=== PATIENT | female | born 1990 | race Caucasian/White ===

== ENCOUNTER 2018-09-21 12:57 | Emergency (ER) | payer SELFPAY ==
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
[2018-09-21 14:44] VITALS: BP 130/80
== END 2018-09-21 14:44 | disposition home or self-care (01) ==
DX: S42.025A Nondisplaced fracture of shaft of left clavicle, initial encounter for closed fracture (principal); R07.89 Other chest pain; W50.0XXA Accidental hit or strike by another person, initial encounter; Z87.891 Personal history of nicotine dependence
CPT/HCPCS: A4565

== ENCOUNTER → 2018-10-11 | Outpatient (CLI) | payer MEDICAID | LOC: BMCIMAGING 14:24 | PROVIDERS: ATTEND Physician Assistant | DX: S42.022A Displaced fracture of shaft of left clavicle, initial encounter for closed fracture (principal) ==

== ENCOUNTER 2018-10-20 11:31 | Day surgery (SDC) | payer MEDICAID ==
[2018-10-20] MEDS ORDERED: ceFAZolin 2 GM/DEXTROSE 100 ML IV ONE (11:43)
[2018-10-20] MEDS ORDERED: LR 1,000 ML IV ONE (11:45)
--- NOTE | 2018-10-20 12:52 | PDANEPAE ---
ANE History of Present Illness left clavicle fx ANE Past Medical History - Cardiovascular History Hx Hypertension: No Hx Arrhythmias: No Hx Chest Pain: No Hx Coronary Artery / Peripheral Vascular Disease: No Hx CHF / Valvular Disease: No Hx Palpitations: No - Pulmonary History Hx COPD: No Hx Asthma/Reactive Airway Disease: No Hx Recent Upper Respiratory Infection: No Hx Oxygen in Use at Home: No Hx Sleep Apnea: No Sleep Apnea Screening Result - Last Documented: Negative - Neurologic History Hx Cerebrovascular Accident: No Hx Seizures: No Hx Dementia: No Neurologic History Comment: MIGRAINES IN PAST. HEAD INJURY IN 2016. 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 - Cancer History Hx Cancer: No - Congenital Disorder History Hx Congenital Disorders: No - GI History GERD: no Hx Gastrointestinal Disorders: No Gastrointestinal History Comment: ACID REFLUX TX W/DIET - Other Health History Other Health History: 1 month ago, HCG positive, OB consulted, no additional testing indicated - Chronic Pain History Chronic Pain: No - Surgical History Prior Surgeries: WISDOM TEETH ANE Review of Systems Review of Systems: - Exercise capacity METS (RN): 5 METS ANE Patient History - Allergies Allergies/Adverse Reactions: No Known Allergies Allergy (Unverified 09/21/18 13:03) - Home Medications Home medications: home medication list seen and reviewed Home Medications: Acetaminophen 10/18/18 [Last Taken 10/19/18] Herbals/Supplements -Info Only 10/18/18 [Last Taken 10/18/18] - NPO status NPO Since - Liquids (Date): 10/19/18 NPO Since - Liquids (Time): 20:00 NPO Since - Solids (Date): 10/19/18 NPO Since - Solids (Time): 20:00 - Anes Hx Anes Hx: no prior problems - Smoking Hx Smoking Status: Light smoker - Family Anes Hx Family Anes Hx: none Family Hx Anesthesia Complications: NEG ANE Labs/Vital Signs - Vital Signs Blood Pressure: 112/58 Heart Rate: 77 Respiratory Rate: 16 O2 Sat (%): 98 Height: 165.1 cm Weight: 56.699 kg ANE Physical Exam - Airway Neck exam: FROM Mallampati Score: Class 2 Mouth exam: normal dental/mouth exam - Pulmonary Pulmonary: no respiratory distress, clear to auscultation - Cardiovascular Cardiovascular: regular rate and rhythym, no murmur, rub, or gallop - ASA Status ASA Status: II ANE Anesthesia Plan Anesthesia Plan: general endotracheal anesthesia Regional Anesthesia: interscalene BP NB
[2018-10-20] MEDS ORDERED: MIDAZOLAM 2 MG/2 ML VIAL IVP ONE (12:53)
[2018-10-20] MEDS ORDERED: fentaNYL 250 MCG/5 ML INJ ONE (12:56)
[2018-10-20] MEDS ORDERED: PROPOFOL 200 MG/20 ML VIAL ONE (12:56)
[2018-10-20] MEDS ORDERED: BUPIVACAINE/EPI 0.5% 30 ML SDV ONE (13:12)
--- NOTE | 2018-10-20 13:27 | PDHPUP ---
History & Physical Update H&P update statement: This history and physical update is based on an assessment of the patient which was completed after admission or registration (within 24 hours), but prior to the surgery/procedure. H&P update: H&P reviewed & patient examined, no change in patient's condition since H&P completed
[2018-10-20] MEDS ORDERED: LIDOCAINE 2% 5 ML SDV ONE (13:35)
[2018-10-20] MEDS ORDERED: ePHEDrine SULFATE 25 MG/5 ML SYR ONE (13:52)
[2018-10-20] MEDS ORDERED: DEXAMETHASONE 4 MG/ML VIAL ONE (13:52)
[2018-10-20] MEDS ORDERED: ONDANSETRON 4 MG/2 ML VIAL ONE (13:52)
[2018-10-20] MEDS ORDERED: DIAZEPAM 10 MG/2 ML SYR IVP PRN (15:32)
[2018-10-20] MEDS ORDERED: LR 500 ML IV PRN (15:32)
[2018-10-20] MEDS ORDERED: NALOXONE HCL 0.4 MG/ML INJ IVP PRN (15:32)
[2018-10-20] MEDS ORDERED: fentaNYL 100 MCG/2 ML INJ IVP PRN (15:32)
--- NOTE | 2018-10-20 15:35 | POSTANESTH ---
Post Anesthetic Evaluation Cardiovascular Status: Normal, Stable Respiratory Status: Normal, Stable Level of Consciousness/Mental Status: Can Participate in Eval Pain Control: Adequate, Prn Tx Ordered Nausea/Vomiting Control: Adequate, Prn Tx Ordered Complications Possibly Related to Anesthesia: None Noted
[2018-10-20 16:13] VITALS: BP 112/65
--- NOTE | 2018-10-20 16:58 | GOP ---
[f rep st] OPERATIVE REPORT DATE OF OPERATION: 10/20/2018 SURGEON: Kali Olivia MD ANESTHESIA: General. PREOPERATIVE DIAGNOSIS: Left clavicle shaft fracture. POSTOPERATIVE DIAGNOSIS: Left clavicle shaft fracture. PROCEDURE PERFORMED: Open reduction and internal fixation of left clavicle. FINDINGS: ESTIMATED BLOOD LOSS: Less than 5 cc. INDICATIONS: The patient is a 28-year-old female who sustained this injury while wrestling with her boyfriend. She was initially treated nonsurgically by our PA. At her 2nd appointment an x-ray showed interval displacement of the clavicle fracture now amounting to 100% displacement and about 15 mm shortening. This amount of displacement and shortening was causing a very visible deformity over the clavicle due to her thin stature. The patient was very distressed about the visible deformity. 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 I felt that based on her activity level, her activity and functional demands, and the amount of displacement seen, I felt in this case that ORIF was indicated. We discussed risks and benefits in detail. Risks include pain, bleeding, infection, damage to surrounding structures, stiffness, weakness, wound healing complications, delayed union, nonunion, need for further surgery including implant removal. Also discussed the possibility of scarring over the shoulder as well as numbness over the chest wall. After our discussion, she wished to proceed. DESCRIPTION OF PROCEDURE: Patient was seen in the preoperative holding area. She was given the opportunity to ask any questions. All questions were answered. Consent was signed. Surgical site was marked. She was transferred to the operative suite. Care was taken to pad all bony prominences. After careful transfer from the [facility] to the operating room table, great care was taken to place her in a modified beach chair position with the head up about 30 degrees. Care was taken to ensure sure that the head was secured and well padded, that all bony prominences were well padded, that her eyes were protected. 2 g of Ancef were given prior to incision. Time-out was called including surgical and anesthesia teams confirming the surgical site, procedure performed. The left upper extremity was prepped and draped in usual sterile fashion for clavicle fracture. Before prepping and draping, I marked out incision over the clavicle. I carefully dissected down through the skin to level of the fascia, opened up the fascia with thick flaps as well as the periosteum along with it until I visualized the fracture site. I visualized one small branch of the supraclavicular nerves that was preserved, protected. There was a good amount of early callus that I had to take down to mobilize both fragments. She had a fairly large butterfly fragment. I placed a 2.7 lag into the butterfly into the lateral piece which reduced it anatomically. This piece was too small for another lag, but I was able to reduce to the lateral shaft anatomically. I then chose a plate, a 6-hole plate. I placed the plate over the fracture. I clamped the plate to the fracture. I clamped the fracture to compress it and then began placing cortical screws to set the plate down to the bone. I placed a lag screw through the plate into the fracture between the lateral fragment of the butterfly then I placed two locking screws at each end. I irrigated copiously with sterile saline. Took final x-rays. I was happy with the screw length and then I closed the fascia with 0 Vicryl and then we closed in layers with 3-0 Monocryl, 4-0 Monocryl subcuticular stitch. Performed a careful plastic closure. We placed Steri-Strips. Sterile dressing was applied. She tolerated the procedure well and was taken to PACU in stable condition. IMPLANTS USED: Synthes clavicle plating system. POSTOPERATIVE CONDITION: Stable. POSTOPERATIVE PLAN: The patient will follow up in clinic in 10 to 14 days. We will monitor her with x-rays to evaluate healing. /[id number]/MODL MTDD
== END 2018-10-20 16:45 | disposition home or self-care (01) ==
LOC: FSGY 11:31
PROVIDERS: ATTEND Orthopaedic Surgery Hand Surgery
PROC: 0PSB04Z Reposition Left Clavicle with Internal Fixation Device, Open Approach (ICD-10-PCS; principal; 2018-10-20 12:45)
DX: S42.022A Displaced fracture of shaft of left clavicle, initial encounter for closed fracture (principal); W19.XXXA Unspecified fall, initial encounter; Y92.009 Unspecified place in unspecified non-institutional (private) residence as the place of occurrence of the external cause; Y93.83 Activity, rough housing and horseplay
CPT/HCPCS: C1713; J0690; J1100; J2250; J2405; J2704; J3010

== ENCOUNTER → 2018-11-01 | Outpatient (CLI) | payer MEDICAID | LOC: BMCIMAGING 07:54 | PROVIDERS: ATTEND Orthopaedic Surgery Hand Surgery | DX: S42.025A Nondisplaced fracture of shaft of left clavicle, initial encounter for closed fracture (principal) ==

== ENCOUNTER → 2018-11-29 | Outpatient (CLI) | payer MEDICAID | LOC: BMCIMAGING 08:54 ==